=== PATIENT | female | born 1985 | race Caucasian/White ===

== ENCOUNTER 2017-12-26 19:29 | Emergency (ER) | payer OTHER ==
[~2017-12-26] VITALS: Ht 172.7 cm; Wt 81.2 kg
== END 2017-12-26 23:37 | disposition home or self-care (01) ==
LOC: ER 19:29
DX: O98.513 Other viral diseases complicating pregnancy, third trimester (principal); J09.X2 Influenza due to identified novel influenza A virus with other respiratory manifestations; Z34.83 Encounter for supervision of other normal pregnancy, third trimester

== ENCOUNTER 2018-02-28 04:35 | Inpatient (IN) | payer OTHER ==
[~2018-02-28] VITALS: Ht 172.7 cm; Wt 88.9 kg
[2018-02-28] MEDS ORDERED: OBSTETRIX EC C1 EACH PO (04:59)
== END 2018-03-02 12:43 | disposition home or self-care (01) | DRG 807 ==
LOC: OBS/DEL 04:35 → OB/GYN 09:38 → LDR 09:38 → OB/GYN 18:19
PROVIDERS: ADMIT Obstetrics & Gynecology
PROC: 10E0XZZ Delivery of Products of Conception, External Approach (ICD-10-PCS; principal; 2018-02-28)
PROC: 4A1HXCZ Monitoring of Products of Conception, Cardiac Rate, External Approach (ICD-10-PCS; 2018-02-28)
PROC: 4A033R1 Measurement of Arterial Saturation, Peripheral, Percutaneous Approach (ICD-10-PCS; 2018-02-28)
DX: O80 Encounter for full-term uncomplicated delivery (principal); Z37.0 Single live birth; Z3A.38 38 weeks gestation of pregnancy